=== PATIENT | male | born 2005 | race Caucasian/White ===

== ENCOUNTER 2023-07-20 15:07 | Emergency (ER) | payer BC ==
[~2023-07-20] VITALS: Ht 177.8 cm; Wt 72.6 kg
[2023-07-20] MEDS ORDERED: IBUP-1953 PO (17:00)
[2023-07-20 17:33] VITALS: BP 115/68; TEMP 98; O2SAT 100
== END 2023-07-20 17:34 | disposition home or self-care (01) ==
LOC: ER 15:20
DX: S62.610A Displaced fracture of proximal phalanx of right index finger, initial encounter for closed fracture (principal); W22.8XXA Striking against or struck by other objects, initial encounter; Y93.61 Activity, american tackle football; Y92.89 Other specified places as the place of occurrence of the external cause; Y99.8 Other external cause status
CPT/HCPCS: 73140-TC